=== PATIENT | female | born 1960 | race Hispanic/Latino ===

== ENCOUNTER → 2022-10-18 | Outpatient (CLI) | payer BC ==
[2022-10-18 11:12] LABS: BASOPHILS # (AUTO) 0.1 (0.0-0.1); BASOPHILS % 0.8 % (0.0-1.0); EOSINOPHILS # (AUTO) 0.2 (0.0-0.4); EOSINOPHILS % 2.5 % (0.0-6.0); HEMOGLOBIN 11.5 g/dL (12.0-16.0); LYMPHOCYTES # (AUTO) 1.2 (1.0-3.2); LYMPHOCYTES % 19.3 % (18.0-39.1); MEAN CORPUSCULAR HGB CONC 32.9 g/dL (31-35); MEAN CORPUSCULAR VOLUME 91.4 fL (81-99); MONOCYTES # (AUTO) 0.9 (0.2-0.8); MONOCYTES % 14.2 % (4.4-11.3); NEUTROPHILS # (AUTO) 4.1 (2.1-6.9); NEUTROPHILS % 62.9 % (38.7-80.0); PLATELET COUNT 187 x10e3/uL (140-360); RED BLOOD COUNT 3.83 x10e6/uL (3.6-5.1); RED CELL DISTRIBUTION WIDTH 13.7 % (11.7-14.4)
[2022-10-18 11:27] LABS: INR 0.89; PROTHROMBIN TIME 12.3 seconds (11.9-14.5)
[2022-10-18 11:28] LABS: PARTIAL THROMBOPLASTIN TIME 33.2 seconds (23.8-35.5)
[2022-10-18 11:33] LABS: ANION GAP 16.1 mmol/L (8-16); CALCIUM 8.7 mg/dL (8.4-10.2); CREATININE, SERUM 0.86 mg/dL (0.57-1.11); POTASSIUM 4.1 mmol/L (3.5-5.1)
== END ==
LOC: DX 10:43
PROVIDERS: ATTEND Internal Medicine Infectious Disease
DX: T81.41XA Infection following a procedure, superficial incisional surgical site, initial encounter (principal); A49.02 Methicillin resistant Staphylococcus aureus infection, unspecified site
CPT/HCPCS: 36415; 36569; 71045; 80048; 85025; 85610; 85730